=== PATIENT | female | born 1930 | race Caucasian/White ===

== ENCOUNTER → 2017-12-20 | Outpatient (CLI) | payer OTHER ==
[~2017-12-20] MED LIST: ATENOLOL100 MG PO; ECO81 PO; GLU500 PO; IPRATROPIUM BROM3 M2 HHN; KLOR-CON M1010 MEQ; LOSARTAN POTASS1 TA6 PO; ZOSYN2.25 GM/50 IV
== END | disposition home or self-care (01) ==
LOC: MA 09:30
PROC: BH02ZZZ Plain Radiography of Bilateral Breasts (ICD-10-PCS; principal; 2017-12-20)
DX: Z12.31 Encounter for screening mammogram for malignant neoplasm of breast (principal)
CPT/HCPCS: 77067